=== PATIENT | male | born 1990 | race Caucasian/White ===

== ENCOUNTER 2022-01-07 12:58 | Emergency (ER) | payer SELFPAY ==
[~2022-01-07] VITALS: Ht 177.8 cm; Wt 114.0 kg
[2022-01-07] MEDS ORDERED: KETOROLAC 15MG/ML VIAL IV ONE (14:00)
[2022-01-07 15:31] LABS: BASOPHILS % 0.9 % (0.0-2.0); EOSINOPHILS % 1.3 % (0.0-5.0); HEMATOCRIT. 40.8 % (42.0-52.0); HEMOGLOBIN. 13.3 g/dL (14.0-18.0); LYMPHOCYTES % 10.8 % (20.0-50.0); MEAN CORPUSCULAR HEMOGLOBIN 25.5 pg (28.0-32.0); MONOCYTES % 7.4 % (2.0-8.0); NEUTROPHILS % 79.6 % (40.0-76.0); PLATELET 390 x1000/uL (130-400); RED BLOOD CELL COUNT 5.23 mill/uL (4.7-6.1); RED CELL DISTRIBUTION WIDTH 15.6 % (11.6-14.6)
[2022-01-07 15:41] LABS: CHLORIDE 102 mEq/L (98-107)
[2022-01-07] MEDS ORDERED: KETOROLAC 15MG/ML VIAL IV NR (20:30)
[2022-01-07] MEDS ORDERED: CEPH500C2 MT (20:44)
[2022-01-07] MEDS ORDERED: IBUP-2029 MT (20:44)
[2022-01-07 21:12] VITALS: BP 148/89
== END 2022-01-07 21:14 | disposition home or self-care (01) ==
LOC: ER 12:58
DX: M70.31 Other bursitis of elbow, right elbow (principal); D72.829 Elevated white blood cell count, unspecified; J45.909 Unspecified asthma, uncomplicated
CPT/HCPCS: 36415; 73080; 80053; 83605; 85025; 85651; 86140; 96374; 99284; J1885

== ENCOUNTER 2022-07-06 12:33 | Emergency (ER) | payer MEDICAID ==
[~2022-07-06] VITALS: Ht 177.8 cm; Wt 105.0 kg
[~2022-07-06 12:33] MED LIST: CEPH500C2 MT; IBUP-2029 MT
[2022-07-06 12:55] VITALS: BP 147/105
[2022-07-06] MEDS ORDERED: NAPROXEN 250MG TABLET PO ONE (14:30)
[2022-07-06] MEDS ORDERED: INDO50CA98 MT (14:46)
== END 2022-07-06 15:04 | disposition home or self-care (01) ==
LOC: ER 12:58
DX: M10.9 Gout, unspecified (principal); J45.909 Unspecified asthma, uncomplicated
CPT/HCPCS: 99283

== ENCOUNTER 2022-09-26 15:38 | Emergency (ER) | payer SELFPAY ==
[~2022-09-26] VITALS: Ht 182.9 cm; Wt 119.0 kg
[~2022-09-26 15:38] MED LIST changes: +INDO50CA98 MT
[2022-09-26] MEDS ORDERED: P20 MT (18:35)
[2022-09-26] MEDS ORDERED: IBUP-2030 MT (18:35)
[2022-09-26] MEDS ORDERED: KETOROLAC 60MG/2ML VIAL IM ONE (18:45)
[2022-09-26] MEDS ORDERED: COLCHICINE 0.6MG TABLET PO ONE (18:45)
[2022-09-26] MEDS ORDERED: PREDNISONE 20MG TABLET PO ONE (18:45)
[2022-09-26 19:25] VITALS: BP 184/114
== END 2022-09-26 19:27 | disposition home or self-care (01) ==
LOC: ER 15:38
DX: M10.9 Gout, unspecified (principal); J45.909 Unspecified asthma, uncomplicated; Z79.899 Other long term (current) drug therapy
CPT/HCPCS: 96372; 99283; J1885; J7512

== ENCOUNTER 2022-11-03 12:29 | Emergency (ER) | payer SELFPAY ==
[~2022-11-03] VITALS: Ht 182.9 cm; Wt 118.0 kg
[~2022-11-03 12:29] MED LIST changes: +IBUP-2030 MT; +P20 MT
[2022-11-03] MEDS ORDERED: P20 MT (16:22)
[2022-11-03] MEDS ORDERED: IBUP-2030 MT (16:22)
[2022-11-03] MEDS ORDERED: PREDNISONE 20MG TABLET PO ONE (16:30)
[2022-11-03] MEDS ORDERED: KETOROLAC 60MG/2ML VIAL IM ONE (16:30)
[2022-11-03] MEDS ORDERED: COLCHICINE 0.6MG TABLET PO ONE (16:30)
[2022-11-03 17:09] VITALS: BP 138/97
== END 2022-11-03 18:01 | disposition home or self-care (01) ==
LOC: ER 13:51
DX: M10.9 Gout, unspecified (principal); J45.909 Unspecified asthma, uncomplicated; Z79.899 Other long term (current) drug therapy
CPT/HCPCS: 96372; 99283; J1885; J7512

== ENCOUNTER 2023-02-09 15:52 | Emergency (ER) | payer MEDICAID ==
[~2023-02-09] VITALS: Ht 182.9 cm; Wt 109.0 kg
[2023-02-09 16:48] VITALS: BP 167/119
[2023-02-09] MEDS ORDERED: IBUPROFEN 400MG TABLET PO ONE (20:00)
[2023-02-09] MEDS ORDERED: COLC0.6C3 PO (20:02)
[2023-02-09] MEDS ORDERED: INDO50CA98 MT (20:02)
== END 2023-02-09 20:58 | disposition home or self-care (01) ==
LOC: ER 15:52
DX: M10.9 Gout, unspecified (principal)
CPT/HCPCS: 99281

== ENCOUNTER 2025-08-05 12:48 | Emergency (ER) | payer OTHER, MEDICAID ==
[~2025-08-05] VITALS: Ht 182.9 cm; Wt 110.0 kg
[~2025-08-05 12:48] MED LIST changes: +COLC0.6C3 PO; +IBUP-1455 MT; -IBUP-2029 MT
[2025-08-05 13:40] VITALS: O2SAT 98
[2025-08-05 15:58] LABS: BASOPHILS % 0.7 % (0.0-2.0); EOSINOPHILS % 0.7 % (0.0-5.0); HEMATOCRIT. 40.0 % (42.0-52.0); HEMOGLOBIN. 12.2 g/dL (14.0-18.0); LYMPHOCYTES % 14.3 % (20.0-50.0); MEAN PLATELET VOLUME 6.8 fl (7.4-10.4); MONOCYTES % 10.6 % (2.0-8.0); NEUTROPHILS % 73.7 % (40.0-76.0); PLATELET 721 x1000/uL (130-400); RED BLOOD CELL COUNT 5.58 mill/uL (4.7-6.1); RED CELL DISTRIBUTION WIDTH 18.5 % (11.6-14.6)
[2025-08-05 16:01] LABS: CREATININE 1.0 mg/dL (0.6-1.3); UREA NITROGEN BLOOD 8 mg/dL (9-23)
[2025-08-05] MEDS ORDERED: HYDROCODONE/ACETAMINOPHEN 7.5/325MG TABLET PO ONE (16:30)
[2025-08-05 17:36] LABS: ASPARTATE AMINOTRANSFERASE 23 IU/L (<34); BILIRUBIN DIRECT 0.2 mg/dL (<=3.0); BILIRUBIN TOTAL 0.4 mg/dL (0.1-1.0)
[2025-08-05 17:37] LABS: PROTEIN TOTAL 6.6 g/dL (6.0-8.3)
[2025-08-05] MEDS: HYDROCODONE/ACETAMINOPHEN 7.5/325MG TABLET PO SCH (17:53)
[2025-08-05] MEDS: KETOROLAC 30MG/ML VIAL IM ONE (18:08)
[2025-08-05] MEDS: ACETAMINOPHEN 325MG TABLET PO ONE (18:08)
[2025-08-05] MEDS: LIDOCAINE 5% PATCH TOP SCH (18:08)
[2025-08-05] MEDS ORDERED: IBUP-1455 MT (19:52)
[2025-08-05] MEDS ORDERED: HYDR-4001 MT ×2 (19:52→19:54)
[2025-08-05] MEDS ORDERED: TOPUD PO (19:52)
[2025-08-05] MEDS ORDERED: LIDO-53 TP (19:52)
[2025-08-05 20:05] VITALS: BP 129/82; PULSE 90; RESP 14; TEMP 37.1; O2SAT 98
[2025-08-05 20:07] LABS: CLARITY URINE CLEAR (CLEAR); COLOR URINE YELLOW (YELLOW); GLUCOSE URINE NEGATIVE (NEGATIVE); KETONES URINE TRACE (NEGATIVE); LEUKOCYTE ESTERASE URINE NEGATIVE (NEGATIVE); NITRITE URINE NEGATIVE (NEGATIVE); OCCULT BLOOD URINE NEGATIVE (NEGATIVE); PH URINE 6.0 (4.5-8.0); PROTEIN URINE TRACE (NEGATIVE); SPECIFIC GRAVITY URINE 1.025 (1.005-1.030); UROBILINOGEN URINE 1.0 E.U./dL (0.2-1.0)
[2025-08-05 20:18] LABS: BACTERIA URINE TRACE; RBC URINE NONE SEEN /hpf (0-2); SQUAMOUS EPITHELIAL CELL URINE RARE /lpf (RARE/1+); WBC URINE 0-2 /hpf (0-2)
== END 2025-08-05 20:09 | disposition home or self-care (01) ==
LOC: ER 12:48
DX: M54.50 Low back pain, unspecified (principal); J45.909 Unspecified asthma, uncomplicated; Z90.89 Acquired absence of other organs; Z91.013 Allergy to seafood; V43.52XA Car driver injured in collision with other type car in traffic accident, initial encounter; Y93.89 Activity, other specified; Y92.89 Other specified places as the place of occurrence of the external cause; Y99.8 Other external cause status
CPT/HCPCS: 80076; 80048; 81003; 83690; 85025; 36415; 74176; 96372; 99285; J1885; Z7610

== ENCOUNTER 2025-09-16 11:54 | Emergency (ER) | payer MEDICAID, OTHER ==
[~2025-09-16] VITALS: Ht 188 cm; Wt 100.0 kg
[~2025-09-16 11:54] MED LIST changes: +HYDR-4001 MT; +LIDO-53 TP; +TOPUD PO
[2025-09-16 11:59] VITALS: TEMP 36.7; O2SAT 97
[2025-09-16] MEDS: COLCHICINE 0.6MG TABLET PO ONE (12:25)
[2025-09-16] MEDS: KETOROLAC 30MG/ML VIAL IM ONE (12:25)
[2025-09-16 12:58] LABS: BASOPHILS % 1.0 % (0.0-2.0); EOSINOPHILS % 2.1 % (0.0-5.0); HEMATOCRIT. 36.9 % (42.0-52.0); HEMOGLOBIN. 11.6 g/dL (14.0-18.0); LYMPHOCYTES % 18.3 % (20.0-50.0); MEAN PLATELET VOLUME 6.2 fl (7.4-10.4); MONOCYTES % 8.5 % (2.0-8.0); NEUTROPHILS % 70.1 % (40.0-76.0); PLATELET 706 x1000/uL (130-400); RED BLOOD CELL COUNT 5.12 mill/uL (4.7-6.1); RED CELL DISTRIBUTION WIDTH 20.6 % (11.6-14.6)
[2025-09-16 13:16] LABS: CREATININE 0.6 mg/dL (0.6-1.3); UREA NITROGEN BLOOD 7 mg/dL (9-23)
[2025-09-16] MEDS ORDERED: ALLO100T MT (14:17)
[2025-09-16] MEDS ORDERED: COLC0.6C3 MT (14:17)
[2025-09-16] MEDS ORDERED: IBUP-1455 MT (14:17)
[2025-09-16] MEDS ORDERED: CEFP100T9 MT (14:18)
[2025-09-16] MEDS ORDERED: NAPR-677 MT (14:30)
[2025-09-16 14:37] VITALS: BP 138/79; PULSE 92; RESP 18; O2SAT 100
== END 2025-09-16 15:14 | disposition home or self-care (01) ==
LOC: ER 11:54
DX: M10.9 Gout, unspecified (principal); J45.909 Unspecified asthma, uncomplicated; F10.90 Alcohol use, unspecified, uncomplicated; Z79.1 Long term (current) use of non-steroidal anti-inflammatories (NSAID); Z90.89 Acquired absence of other organs; Z79.899 Other long term (current) drug therapy; Z91.013 Allergy to seafood; Y90.9 Presence of alcohol in blood, level not specified
CPT/HCPCS: 99284; 80048; 84550; 85025; 36415; 73130; 96372; J1885